=== PATIENT | male | born 1965 | race Caucasian/White ===

== ENCOUNTER 2019-09-10 20:52 | Inpatient (IN) | payer BC ==
[~2019-09-10 20:52] MED LIST: Iopamidol-370 76% 500 ML 1 ML ONE
[2019-09-10] MEDS ORDERED: Acetaminophen 500 MG TAB ONE (21:22)
[2019-09-10] MEDS ORDERED: Ondansetron PF 4 MG/2 ML Vial ONE (21:22)
[2019-09-10 21:36] LABS: #Lymphocytes 1.1 thou/uL (1.20-3.40); #Monocytes 1.1 thou/uL (0.11-0.59); #Neutrophils 11.2 thou/uL (1.40-6.50); %Basophils 0.2 % (0.0-1.0); %Eosinophils 0.3 % (0.0-10.0); %Lymphocytes 7.9 % (21.0-51.0); %Monocytes 8.1 % (0.0-10.0); %Neutrophils 83.5 % (42.0-75.0); Hemoglobin 14.7 g/dL (14.0-18.0); Mean Corpuscular HGB CONC 34.3 g/dL (32.0-36.0); Mean Corpuscular Hemoglobin 33.2 pg (27.0-31.0); Mean Corpuscular Volume 96.6 fL (78.0-98.0); Mean Platelet Volume 7.2 fL (7.4-10.4); Platelet Count 219 thou/uL (130-400); RBC Distribution Width 12.6 % (11.5-14.5); Red Blood Cell (RBC) Count 4.45 mill/uL (4.70-6.10); White Blood Cell (WBC) Count 13.4 thou/uL (4.8-10.8)
[2019-09-10 21:51] LABS: ALT (SGPT) 33 U/L (8-55); AST (SGOT) 19 U/L (5-34); Albumin 4.4 g/dL (3.5-5.0); Alkaline Phosphatase 67 U/L (40-110); Anion Gap 11 mmol/L (10-20); BUN (Urea Nitrogen) 16 mg/dL (8.4-25.7); Bilirubin, Total 0.9 mg/dL (0.2-1.2); Calc. Creatinine Clearance 0 mL/min (70-130); Calcium 9.3 mg/dL (7.8-10.44); Carbon Dioxide 28 mmol/L (22-29); Chloride 98 mmol/L (98-107); Estimated GFR-MDRD 59; Globulin 3.3 g/dL (2.4-3.5); Glucose 127 mg/dL (70-105); Lipase 4 U/L (8-78); Potassium 4.2 mmol/L (3.5-5.1); Protein, Total 7.7 g/dL (6.0-8.3); Sodium 133 mmol/L (136-145)
[2019-09-10] MEDS ORDERED: metroNIDAZOLE 500 MG/100 ML BAG ONE (22:35)
[2019-09-11] MEDS ORDERED: Acetaminophen 650 MG Suppository PR PRN (00:02)
[2019-09-11] MEDS ORDERED: Senokot S 8.6-50 MG TAB PO PRN (00:02)
[2019-09-11] MEDS ORDERED: Bisacodyl 10 MG SUPP PR PRN (00:02)
[2019-09-11] MEDS: Sodium Chloride 0.9% 1,000 ML IV SCH ×2 (00:15→12:42)
--- NOTE | 2019-09-11 00:27 | CT ---
CT ABDOMEN AND PELVIS WITH IV CONTRAST: Date: 09/10/2019 INDICATION: Right lower quadrant pain. FINDINGS: Images through the lung bases show nonspecific ground-glass opacity in the posterior right lower lobe , possibly representing atelectasis. Liver, spleen, and pancreas are unremarkable. There is a diverticulum off the greater curvature of the stomach in the region of the antrum. Adrenal glands and kidneys unremarkable. Small bowel loops are normal caliber. The appendix is not identified. Review of the colon reveals scattered diverticula from the sigmoid. There is a large diverticula from the upper sigmoid. There is surrounding inflammatory change. There is luminal narrowing and mural th ickening at this location. There are tiny extraluminal gas pockets associated with this diverticula s uggesting a confined perforation associated with this diverticula and surrounding inflammation indica ting diverticulitis. No evidence of abscess or fluid collection. IMPRESSION: Inflammatory change involving a diverticulum of the upper sigmoid in the lower mid abdomen. Tiny extr aluminal gas pockets are associated with this area of inflammation. No fluid or abscess collection. F indings would be consistent with diverticulitis. Close follow-up recommended. POS: JUVENCIO
--- NOTE | 2019-09-11 01:42 | HP ---
PRIMARY CARE PHYSICIAN: Dr. Stevenson. CHIEF COMPLAINT: Right lower quadrant abdominal pain. HISTORY OF PRESENT ILLNESS: Mr. Obrien is a 54-year-old man, who reported to the emergency room after experiencing some right lower quadrant pain this morning with some nausea and fever. He denies he has actually vomited, denies any diarrhea, denies any dysuria or increased frequency. He denies any abdominal surgery. He reports that he had a similar episode about 30 years ago, but it resolved on its own. Past medical history pertinent for hypertension, seizures, and some neuropathy. Workup in the ER with a CT of the abdomen and pelvis showed inflammatory change involving a diverticulum of the upper sigmoid in the lower mid abdomen, tiny extraluminal gas pockets are associated with this area of inflammation. No fluid or abscess collection. His lipase was 4, sodium 133, glucose 127. Remaining comp met was unremarkable. He had a white blood cell count of 13.4, hemoglobin 14.7, hematocrit is 43, platelet count is 219. The patient will be admitted to Med-Surg for IV antibiotics and further management. REVIEW OF SYSTEMS: The patient reports chills and fever, denies any upper respiratory symptoms, reports lower right quadrant abdominal pain, reports nausea. Denies vomiting, diarrhea, or constipation. All systems are reviewed and are negative unless mentioned in the HPI. PAST MEDICAL HISTORY: See the HPI. SURGICAL HISTORY: None. PSYCHIATRIC HISTORY: None. SOCIAL HISTORY: The patient denies any alcohol or drug use. He is a former tobacco smoker. He quit smoking less than 10 years ago. He lives at home with his family. ALLERGIES: NONE. CURRENT MEDICATIONS: 1. Gabapentin 1200 mg p.o. b.i.d. 2. Oxcarbazepine 300 mg p.o. b.i.d. 3. Bystolic 1 tablet q. day. 4. Losartan 100 mg p.o. q. day. PHYSICAL EXAMINATION: VITAL SIGNS: Blood pressure 103/53, pulse is 71, respiratory rate is 16, temp is 98.4, PO2 sats are 98% on room air. CONSTITUTIONAL: The patient is nontoxic appearing. He is alert and oriented to person, place, and time. HEAD: Atraumatic and normocephalic. EYES: Pupils equally round and reactive to light. Extraocular muscles are intact. NECK: Normal range of motion. Trachea is midline. RESPIRATORY: Chest expansion is equal. CARDIOVASCULAR: Regular rate and rhythm. ABDOMEN: Male. Tenderness to the right lower quadrant, moderate intensity. There is some guarding, some rebound. BACK: Normal range of motion. No tenderness. EXTREMITIES: Upper extremity: Normal range of motion. Motor strength is normal. Radial pulses are normal. Lower extremity: Normal range of motion. Motor strength is normal. Pedal pulses are normal. NEURO: The patient is oriented to person, place, and time. Speech is normal. SKIN: Warm, dry, and normal in color. PLAN AND ASSESSMENT: 1. Diverticulitis with microperforation. We will keep the patient n.p.o. for now, can have medications with sips of water. Normal saline at 75 mL per hour. Pain medications as needed. We will start some Zosyn 4.5 g q.6 hours. We will consult General Surgery to see in the a.m. 2. History of hypertension. The patient currently is little on the hypotensive side. We will hold his home medications for now. The patient does report that he took a dose of losartan prior to arrival to the ER, which is unusual, he usually takes it in the morning. 3. History of seizures. We will restart his home medication. 4. History of neuropathy. We will restart his home medications. 5. Case discussed with Dr. Lyn who agrees with plan. 6. Deep venous thrombosis and gastrointestinal prophylaxis started. 7. Patient is a full code. 8. Hospital course dependent on clinical findings. Job ID: [id number]
[2019-09-11 01:51] VITALS: BMI 39.0
[2019-09-11] MEDS: Piperacillin/Tazobactam 4.5 GM in Sodium Chloride 0.9% 100 ML IVPB SCH ×2 (02:48→08:45)
[2019-09-11] MEDS: Ondansetron PF 4 MG/2 ML Vial IVP PRN ×3 (02:48→16:58)
[2019-09-11 06:36] LABS: ALT (SGPT) 27 U/L (8-55); AST (SGOT) 16 U/L (5-34); Albumin 3.9 g/dL (3.5-5.0); Alkaline Phosphatase 56 U/L (40-110); Anion Gap 10 mmol/L (10-20); BUN (Urea Nitrogen) 15 mg/dL (8.4-25.7); Calc. Creatinine Clearance 147 mL/min (70-130); Calcium 8.6 mg/dL (7.8-10.44); Carbon Dioxide 28 mmol/L (22-29); Chloride 104 mmol/L (98-107); Estimated GFR-MDRD 65; Globulin 2.8 g/dL (2.4-3.5); Glucose 110 mg/dL (70-105); Protein, Total 6.7 g/dL (6.0-8.3); Sodium 138 mmol/L (136-145)
[2019-09-11 06:43] LABS: #Eosinphils 0.1 thou/uL (0.0-0.7); #Lymphocytes 1.1 thou/uL (1.20-3.40); #Monocytes 1.1 thou/uL (0.11-0.59); #Neutrophils 7.6 thou/uL (1.40-6.50); %Basophils 0.3 % (0.0-1.0); %Eosinophils 1.2 % (0.0-10.0); %Lymphocytes 11.3 % (21.0-51.0); %Monocytes 10.8 % (0.0-10.0); %Neutrophils 76.5 % (42.0-75.0); Hemoglobin 13.4 g/dL (14.0-18.0); Mean Corpuscular HGB CONC 32.6 g/dL (32.0-36.0); Mean Platelet Volume 7.7 fL (7.4-10.4); Platelet Count 185 thou/uL (130-400); RBC Distribution Width 12.6 % (11.5-14.5); Red Blood Cell (RBC) Count 4.18 mill/uL (4.70-6.10); White Blood Cell (WBC) Count 9.9 thou/uL (4.8-10.8)
[2019-09-11] MEDS: Famotidine/PF 20 mg/2ml Vial SLOW IVP SCH ×2 (08:45→21:42)
[2019-09-11] MEDS: Gabapentin 400 MG CAP PO SCH ×2 (08:45→21:41)
[2019-09-11] MEDS: Enoxaparin Sodium 40 MG/0.4 ML SYRINGE SC SCH (08:45)
[2019-09-11] MEDS: OXcarbazepine 300 MG TAB PO SCH ×2 (08:46→21:42)
[2019-09-11] MEDS: Acetaminophen 325 MG TAB PO PRN (16:48)
--- NOTE | 2019-09-11 16:53 | PDOC.EVN ---
Event Note - Event Note Event Note: inherited patient this morning. qSOFA 0/3, doing well with medical management. Educated patient regarding diverticulosis and diverticulitis pending possible discharge tomorrow. Will require colonoscopy as outpatient approximately 2 weeks after diverticulitis resolves.
[2019-09-11] MEDS: metroNIDAZOLE 500 MG in Premix Bag 1 BAG IVPB SCH (16:56)
[2019-09-12] MEDS: metroNIDAZOLE 500 MG in Premix Bag 1 BAG IVPB SCH ×2 (01:07→09:37)
[2019-09-12] MEDS: Acetaminophen 325 MG TAB PO PRN ×2 (03:06→07:56)
[2019-09-12] MEDS: Sodium Chloride 0.9% 1,000 ML IV SCH ×2 (04:20→09:34)
[2019-09-12 05:52] LABS: #Eosinphils 0.2 thou/uL (0.0-0.7); #Lymphocytes 1.2 thou/uL (1.20-3.40); #Monocytes 0.6 thou/uL (0.11-0.59); %Basophils 0.6 % (0.0-1.0); %Eosinophils 2.6 % (0.0-10.0); %Lymphocytes 20.1 % (21.0-51.0); %Monocytes 10.2 % (0.0-10.0); %Neutrophils 66.6 % (42.0-75.0); Hemoglobin 13.2 g/dL (14.0-18.0); Mean Corpuscular HGB CONC 32.9 g/dL (32.0-36.0); Mean Corpuscular Hemoglobin 32.4 pg (27.0-31.0); Mean Corpuscular Volume 98.4 fL (78.0-98.0); Mean Platelet Volume 7.1 fL (7.4-10.4); Platelet Count 155 thou/uL (130-400); RBC Distribution Width 12.3 % (11.5-14.5); Red Blood Cell (RBC) Count 4.07 mill/uL (4.70-6.10)
--- NOTE | 2019-09-12 06:59 | CON ---
DATE OF CONSULTATION: 09/11/2019 REQUESTING NURSE PRACTITIONER: MED Reyez ATTENDING SURGEON: Dr. French. CHIEF COMPLAINT: Right lower quadrant abdominal pain. HISTORY OF PRESENT ILLNESS: This is a 54-year-old gentleman, who started having lower abdominal pain yesterday. The patient reports having chills and a temperature of 101.6 yesterday evening. He presented to the emergency room for evaluation of his right lower quadrant pain and nausea. The patient denies any vomiting or diarrhea. The patient had a normal bowel movement yesterday and reports passing gas this morning. The patient denies any urinary symptoms or increased urgency or frequency. The patient denies any previous history of abdominal surgeries. The patient is afebrile this morning. The patient had a CT abdomen and pelvis in the emergency room last night showing inflammatory changes involving a diverticulum of the upper sigmoid and the lower mid abdomen. Tiny extraluminal gas pockets are associated with area of inflammation. There is no fluid or abscess collection. Findings consistent with diverticulitis. Dr. French did review the films. The patient was started on Zosyn and has been n.p.o. His white count is normal this morning. REVIEW OF SYSTEMS: Ten-point review of systems is negative unless otherwise indicated in the above HPI. PAST MEDICAL HISTORY: Hypertension, seizures. PAST SURGICAL HISTORY: Denies. SOCIAL HISTORY: Denies alcohol use. Denies drug use. The patient is a former smoker, who quit less than 10 years ago. The patient lives at home with his family. ALLERGIES: NO KNOWN DRUG ALLERGIES. CURRENT MEDICATIONS: 1. Gabapentin 1200 mg p.o. b.i.d. 2. Oxcarbazepine 300 mg p.o. b.i.d. 3. Bystolic one tablet daily. 4. Losartan 100 mg p.o. daily. PHYSICAL EXAMINATION: VITAL SIGNS: Temperature 97.7, pulse 61, respirations 20, SpO2 of 96% on room air, and blood pressure 109/71. GENERAL: Well-appearing middle-aged male, awake, alert, in no distress. HEENT: Head is atraumatic and normocephalic. Mucous membranes are moist. NECK: There is no JVD, trachea midline. RESPIRATORY: Good inspiratory and expiratory effort. Respirations are even and nonlabored. CARDIOVASCULAR: Regular rate. Regular rhythm. ABDOMEN: Tenderness to the right lower quadrant. Active bowel sounds. No peritoneal signs. EXTREMITIES: Moves all extremities, no focal deficits. NEUROLOGIC: No focal deficits. GCS 15. SKIN: Warm, dry, and pink. LABORATORY DATA: WBC 9.9, RBC 4.18, hemoglobin 13.4, hematocrit 40.9, and platelets 185. Sodium 138, potassium 4.0, chloride 104, carbon dioxide 28, BUN 15, creatinine 1.17, estimated GFR 65, glucose 110, calcium 8.5, total bilirubin 1.0, AST 16, ALT 27, alkaline phosphatase 56, serum total protein 6.7, and albumin 3.9. IMPRESSION: 1. Diverticulitis with microperforation. 2. History of hypertension and seizure disorder of unknown cause. PLAN: Change antibiotics to IV Cipro and Flagyl. We will increase the patient's diet to a clear liquid diet as tolerated. Once the patient is not having abdominal pain, the patient may be switched to oral Cipro and Flagyl and placed on a regular diet. Once the patient is tolerating oral antibiotics and diet, he can be discharged home and continue oral Cipro and Flagyl for 2 weeks. The patient is to follow up with [facility] in 2 weeks. The patient is to ambulate frequently. The plan was made with Dr. French. The patient was examined by Dr. French. Thank you for the consult. Please let us know if you have any questions. Job ID: [id number]
[2019-09-12] MEDS: Enoxaparin Sodium 40 MG/0.4 ML SYRINGE SC SCH (07:51)
[2019-09-12] MEDS: Famotidine/PF 20 mg/2ml Vial SLOW IVP SCH (07:51)
[2019-09-12] MEDS: OXcarbazepine 300 MG TAB PO SCH (07:52)
[2019-09-12] MEDS: Gabapentin 400 MG CAP PO SCH (07:52)
[2019-09-12 11:37] VITALS: BP 122/67; TEMP 97.5
--- NOTE | 2019-09-12 14:54 | PRG ---
DATE OF SERVICE: 09/12/2019 SUBJECTIVE: The patient was seen this morning during rounds. He was sitting up in chair with no signs of acute distress. He reported having passing gas today. He states that this morning when he had a clear liquid diet, he had some sharp abdominal pain that lasted for very short amount of time, then resolved. He has not been advanced to a regular diet yet. On palpation, he has very mild lower pelvic pain. He continues to receive IV antibiotics. OBJECTIVE: VITAL SIGNS: Temperature 97.7, pulse 69, respirations 18, oxygen saturation 97% on room air, and blood pressure 125/84. GENERAL: Well-appearing middle-aged male sitting up in chair with no signs of acute distress. PULMONARY: Equal chest rise and fall. No signs of acute respiratory distress. CARDIAC: Regular rate and rhythm. GI: Abdomen soft, mildly tender to palpation in the bilateral lower quadrants and nondistended. EXTREMITIES: 2+ pulses in all extremities. Gross motor and sensation intact. No significant swelling noted. NEUROLOGIC: GCS is 15. LABORATORY FINDINGS: White count 6.0, hemoglobin 13.2, hematocrit 40.1, and platelets 155. ASSESSMENT: 1. Diverticulitis with micro perforation. 2. History of seizures and hypertension. PLAN: Continue clear liquid diet, advance as tolerated. Continue IV fluids per primary team. Continue Cipro and Flagyl. Surgery will continue to see him daily. Please see recommendations for discharge antibiotics and follow up. Job ID: [id number]
[2019-09-12] MEDS ORDERED: Gabapentin 300 MG CAP PO SCH (17:00)
--- NOTE | 2019-09-12 18:17 | DIS ---
DATE OF ADMISSION: 09/11/2019 DATE OF DISCHARGE: 09/12/2019 HOSPITAL COURSE: Mr. Obrien is a 54-year-old male with medical history of hypertension, elevated seizures, and peripheral neuropathy, who presented with acute right lower quadrant pain, nausea, and fever. He was diagnosed with microperforated diverticulitis. The Surgical Team evaluated the patient and decided to manage the patient medically. The patient's abdominal pain improved and he tolerated soft diet on the day of discharge. He was discharged hemodynamically stable with no complaints, on an antibiotic course of a total of 2 weeks and outpatient appointment with Surgery on completion of antibiotics. PHYSICAL EXAMINATION: VITAL SIGNS: Blood pressure 122/67, pulse 69, respiratory rate 18, oxygen saturation 97% on room air, and temperature 97.5. GENERAL APPEARANCE: Sitting comfortably, alert. HEENT: Normocephalic, atraumatic. EOMI. PERRL. CARDIAC: Regular rate and rhythm. No murmurs, gallops, or rubs. PULMONARY: Clear to auscultation bilaterally. No wheezing, rales, or rhonchi. GASTROINTESTINAL: Soft, nontender, and nondistended. Normal bowel sounds. EXTREMITIES: No edema. PSYCHIATRIC: Proper mood and affect. Alert and oriented x3. MEDICATION LIST: New medications: 1. Flagyl 500 mg p.o. q.8 hours for a total of 12 more days. 2. Ciprofloxacin 500 mg p.o. q.12 hours for a total of 12 more days. 3. Tylenol 650 mg p.o. q.4 hours p.r.n. for abdominal pain. 4. Senna docusate 8.6 mg/50 mg two tablets p.o. b.i.d. Continued medications: 1. Gabapentin. 2. Losartan. 3. Nebivolol. 4. Oxcarbazepine. Job ID: [id number]
[2019-09-12] MEDS ORDERED: OXcarbazepine 600 MG TAB PO SCH (21:00)
[2019-09-13] MEDS ORDERED: Nebivolol HCl 5 MG TAB PO SCH (09:00)
[2019-09-13] MEDS ORDERED: Losartan 25 MG TAB PO SCH (09:00)
== END 2019-09-12 16:52 | disposition home or self-care (01) | DRG 392 ==
LOC: ERS 20:52 → T4-A 09-11 00:16
PROVIDERS: ADMIT Family Medicine; ATTEND Family Medicine
DX: K57.20 Diverticulitis of large intestine with perforation and abscess without bleeding (principal); I10 Essential (primary) hypertension; G62.9 Polyneuropathy, unspecified; R56.9 Unspecified convulsions; Z87.891 Personal history of nicotine dependence
CPT/HCPCS: 36415; 74177; 80053; 83690; 85025; 96361; 96365; 96367; 96375; J0744; J1650; J1956; J2405; J2543; J3490; Q9967; S0028

== ENCOUNTER 2019-10-19 10:02 | Outpatient (CLI) | payer BC ==
--- NOTE | 2019-10-19 14:13 | CT ---
CT ABDOMEN WITH CONTRAST CT PELVIS WITH CONTRAST: DATE: 10/19/2019 HISTORY: 54-year-old male follow-up diverticulitis Dr. Avila discussed the findings and recommendation by telephone with WINSTON Ruiz at 1401 hours 09/24 TECHNIQUE: IV injection of iodinated contrast media: Administered Oral contrast media:Administered FINDINGS: Liver: No focal solid mass. Spleen: No splenomegaly.. Pancreas: No mass or surrounding fat stranding.. Adrenals: No mass.. Kidneys: No hydronephrosis or enhancement abnormalities.. Ureters: No dilation. Bladder: No pathology identified. Abdominal aorta: No aneurysm. Small bowel: No dilation. Colon: Previously demonstrated inflammatory changes in the mesentery adjacent to a portion of mural-t hickened sigmoid colon, has completely, or almost completely resolved. The previously demonstrated focus of extraluminal gas is no longer present. There may or may not be minimal residual fat strandin g edema. There is no abscess. There is no longer mural thickening of the sigmoid colon. Appendix: New finding of thickening, especially proximally, where the caliber is 7 mm. Mild surroundi ng fat stranding could be residual from previous diverticulitis, but the possibility of acute appendicitis is raised. Free air: None. Free fluid: None. IMPRESSION: 1) interval resolution of the sigmoid colonic diverticulitis. 2) interval development of mild thickening of the appendix. Uncertain whether this is reactive to the prior diverticulitis, or represents an early acute appendicitis. If patient has recurrent symptoms in this location, follow-up CT and/or general surgery consultation is recommended.
== END 2019-10-19 10:03 | disposition home or self-care (01) ==
LOC: SCSCT 10:02
PROVIDERS: ATTEND Physician Assistant Medical
DX: R19.7 Diarrhea, unspecified (principal); K57.32 Diverticulitis of large intestine without perforation or abscess without bleeding; K38.8 Other specified diseases of appendix; Z86.010 Personal history of colon polyps
CPT/HCPCS: 74177

== ENCOUNTER 2019-11-28 10:22 | Outpatient (CLI) | payer BC ==
--- NOTE | 2019-11-28 14:13 | CT ---
CT ABDOMEN AND PELVIS PERFORMED WITH CONTRAST ENHANCEMENT: HISTORY: Right lower quadrant pain x 2 months. The patient had their appendix removed in September. Pain still persists. COMPARISON: 10/19/2019 examination. FINDINGS: The lung bases are clear of infiltrates. The liver, spleen, pancreas, and gallbladder regions appear unremarkable. Right and left adrenal glands and right and left kidneys are normal in size. There is no significant periaortic or mesenteric lymphadenopathy. CT OF PELVIS PERFORMED WITH CONTRAST ENCHANCEMENT: The patient reports appendectomy. There is no inflammatory change or fluid collection in this region . Minimal diverticulosis of the colon is seen. No inflammatory process. No free fluid. IMPRESSION: 1. Minimal diverticulosis. 2. No evidence of any complications related to appendectomy. No fluid collections. POS: ERIKA
== END 2019-11-28 10:23 | disposition home or self-care (01) ==
LOC: SCSCT 10:22
PROVIDERS: ATTEND Physician Assistant Medical
DX: K57.92 Diverticulitis of intestine, part unspecified, without perforation or abscess without bleeding (principal); R19.7 Diarrhea, unspecified; K57.30 Diverticulosis of large intestine without perforation or abscess without bleeding
CPT/HCPCS: 74177